=== PATIENT | male | born 1970 | race Two or more races ===

== ENCOUNTER 2020-08-23 06:53 | Outpatient (CLI) | payer OTHER ==
[~2020-08-23 06:53] MED LIST: IBUPROFEN800 MG PO; OMEPRAZOLE40 MG PO; PERCOCET 5/3251 TAB PO; POLY119PG PO
[2020-08-23] MEDS ORDERED: ENALAPRIL MALEA10 MG PO (14:30)
[2020-08-23] MEDS ORDERED: SIMVASTATIN5 MG (14:30)
== END 2020-08-23 07:12 | disposition home or self-care (01) ==
LOC: LAB 06:53
PROVIDERS: ATTEND Orthopaedic Surgery
DX: D64.89 Other specified anemias (principal); Z76.89 Persons encountering health services in other specified circumstances; E88.89 Other specified metabolic disorders; D68.8 Other specified coagulation defects; N39.0 Urinary tract infection, site not specified; Z22.322 Carrier or suspected carrier of Methicillin resistant Staphylococcus aureus; I49.8 Other specified cardiac arrhythmias; I10 Essential (primary) hypertension

== ENCOUNTER 2020-09-04 05:30 | Day surgery (SDC) | payer OTHER ==
[~2020-09-04 05:30] MED LIST changes: +ENALAPRIL MALEA10 MG PO; +SIMVASTATIN5 MG
== END 2020-09-04 11:00 | disposition home or self-care (01) ==
LOC: CIR.AMB 05:30
PROVIDERS: ATTEND Orthopaedic Surgery
DX: D18.01 Hemangioma of skin and subcutaneous tissue (principal); Z20.822 Contact with and (suspected) exposure to COVID-19